=== PATIENT | male | born 1945 | race Two or more races ===

== ENCOUNTER 2023-07-19 21:53 | Inpatient (IN) | payer OTHER ==
[~2023-07-19] VITALS: Ht 165.1 cm; Wt 127.5 kg
[2023-07-19] MEDS ORDERED: CARDURA1 MG PO (22:09)
[2023-07-19] MEDS ORDERED: HUMALOG100 UNIT/2 SQ (22:10)
[2023-07-19] MEDS ORDERED: LASIX20 MG (22:10)
[2023-07-19] MEDS ORDERED: GLUMETZA500 MG (22:10)
[2023-07-19] MEDS ORDERED: METROPOLOL (22:10)
[2023-07-19] MEDS ORDERED: NEURONTIN300 MG PO (22:10)
--- NOTE | 2023-07-19 22:11 | NUR ---
PTE ALERTA Y ORIENTADO X3, LLEGA EN AMBULANCIA EN COMPANIA DE PARAMEDICOS. PTE REFIERE SE CODY EN [place]. AL MOMENTO PTE PRESENTA 170/110MMHG Y 94%. SE REALIZA EKG Y SE PRESENTA A . SE UBICA PTE EN AREA DE OBSERVACION Y SE CONECTA A MONITOR CARDIACO.
[2023-07-19] MEDS ORDERED: LABETALOL HCL 100 MG/20 ML ML IV ONE (22:30)
[2023-07-19] MEDS ORDERED: NITROGLYCERIN 0.2 MG/HR PATCH.TD24 TD ONE (22:45)
[2023-07-19] MEDS ORDERED: FUROsemide 20 MG/2 ML VIAL IV ONE (22:45)
[2023-07-19] MEDS ORDERED: IPRATROPIUM BROMIDE 0.5 MG/2.5 ML AMPUL.NEB IH SCH (22:45)
--- NOTE | 2023-07-19 23:21 | NUR ---
MASCULINO EVALUADO POR . SE EDUCA A PTE SOBRE TX MEDICO Y REFIERE ENTENDER. PTE CONECTADO A MONITOR CARDIACO Y OXIMETRIA DE PULSO. SE COLOCA CANULA A 3 LT/MIN. SE INSERTA SPEARS BAJO MEDIDAS ESTERILES, SE CORROBORA PATENTICIDAD Y SE COLOCA A GRAVEDAD. SE NOTIFICAN ABG'S Y TERAPIAS RESPIRATORIAS PENDIENTES. SE NOTIFICAN X-RAYS Y CT.
--- NOTE | 2023-07-19 23:55 | NUR ---
SE LE EXTRAEN MUESTRAS BAJO MEDIDAS ASEPTICAS,SE CANALIZA Y SE ADMINISTRAN MEDICAMENTOS NANCY ORDEN MEDICA.SE NOTIFICAN TERAPIAS RESP Y ABG A MANN.
[2023-07-19 23:56] LABS: HEMOGLOBIN 13.3 g/dL (13-16.00); MEAN CELL VOLUME 85.7 fL (80.0-100.00); MEAN CORPUSCULAR HEMOGLOBIN 29.2 pg (27.00-32.0); PLATELET COUNT 237 K/uL (150-450); RED BLOOD COUNT 4.55 M/uL (4.00-6.00); RED CELL DISTRIBUTION WIDTH 15.4 % (11.5-14.5)
[2023-07-20 00:26] LABS: PH,URINE 7.5 (5.0-8.0); URINE APPEARANCE Clear; URINE BILIRRUBIN Negative (NEGATIVE); URINE BLOOD Small; URINE COLOR Yellow; URINE GLUCOSE Negative (NEGATIVE); URINE LEUKOCYTE Negative; URINE NITRATE Negative; URINE PROTEIN 30 (NEGATIVE); URINE UROBILINOGEN 0.2 E.U./dl
--- NOTE | 2023-07-20 00:26 | NUR ---
PACIENTE ALERTA Y ORIENTAD X3, SE DAYANA BP MANUAL NANCY ORDEN MEDICA DEL DR. GONZALEZ. EL RESULTADO DE LA MISMA FUE DE 180/90.
[2023-07-20 00:30] LABS: URINE BACTERIA 7.5 uL (0.0-1933); URINE EPITHELIAL CELLS 2.6 uL (0.0-38.8); URINE WBC 15.6 uL (0.0-23.2)
[2023-07-20 00:39] LABS: INR 1.01; PARTIAL THROMBOPLASTIN TIME 29.3 SECONDS (22.0-34.0); PROTHROMBIN TIME 10.6 SECONDS (9.0-11.5)
[2023-07-20 00:40] LABS: CALCIUM 9.5 mg/dL (8.5-10.1); CREATININE SERUM 1.33 mg/dL (0.70-1.30); GFR 51.73; POTASSIUM 3.9 mEq/L (3.5-5.1)
[2023-07-20 01:12] LABS: ABG PH 7.406 (7.35-7.45); ABG pCO2 49.2 mmHg (35-45); BASE EXCESS 4.4 mmol/l; BICARBONATE 30.2 mmol/l (23-25); SaO2 97.7 %; Tco2 31.7 mmol/l
[2023-07-20] MEDS ORDERED: LABETALOL HCL 20MG/4ML SYRINGE IV STA (01:14)
[2023-07-20 01:15] LABS: allen test SATISFACTORY; o2 28 %; puncture site RADIAL RIGHT
[2023-07-20] MEDS ORDERED: CLOPIDOGREL BISULFATE 75 MG TABLET PO STA (01:44)
[2023-07-20] MEDS ORDERED: ASPIRIN 81 MG TAB.CHEW PO STA (01:45)
[2023-07-20] MEDS ORDERED: NITROGLYCERIN IN 5 % DEXTROSE 250 ML IV SCH (04:00)
--- NOTE | 2023-07-20 07:08 | NUR ---
SE RECIBE PACIENTE DE TURNO ANTERIOR ALERTA Y ORIENTADO X3; UBICADO EN SECCION K. CONECTADO A MONITOR CARDIACO Y OXIMETRIA DE PULSO. SE OBSERVA CON CANULA NASAL A 3LT/MIN; LA CUAL TOLERA PRESENTADO SPO2 100% CANALIZACIONES X2; LIBRES DE EDEMA O ERITEMA. RECIBIENDO DRIP DE TRIDIL @3ML/HR. SPEARS A GRAVEDAD CON EGRESO APROXIMADO DE 1200 ML COLOR AMARILLO GAIL. PACIENTE CONSULTADO DR. JAMES HOBBS. PENDIENTE MUESTRAS DE LABORATORIO.
--- NOTE | 2023-07-20 10:00 | NUR ---
SE RECIBE MASCULINO ALERTA Y ORIENTADO X3 AL AREA DE CUIDADO CRITICO. SE UBICA EN CAMA #3, SE CONECTA A MONITOR CARDIACO Y OXIMETRIA DE PULSO. VENOPUNCION #22 X2 PATENTES Y FELICIA DE EDEMA. SE OBSERVA EDEMA EN AMBOS BRAZOS, FAUSTO Y EXTREMIDADES INFERIORES. NO PRESENTA AREAS DE PRESION AL MOMENTO. SI SE OBSERVA PIEL LIGERAMENTE DESHIDRATADA. SPEARS PATENTE Y EN POSICION CON 100MLS APROX DE ORINA AMARILLO OBSCURO. CANULA NASAL A 3 LT/MIN. TRIDIL BAJANDOA A 3MLS/HR POR IV PUMP. SE REALIZA DAYANA DE S/V Y SE DOCUMENTA EN SISTEMA. PTE PENDIENTE A CONSULTA CON DR.HERNANDEZ HOBBS.
[2023-07-20] MEDS ORDERED: INSULIN LISPRO 1,000 UNIT/10 ML UNITS SUBCUTANEO PRN (11:00)
[2023-07-20] MEDS ORDERED: SODIUM CHLORIDE 0.45 % 1,000 ML IV SCH (11:00)
[2023-07-20] MEDS ORDERED: DEXTROSE 50 % IN WATER 0.5 G/ML DISP.SYRIN IV PRN (11:00)
[2023-07-20] MEDS ORDERED: NITROGLYCERIN IN 5 % DEXTROSE 50 MG/250 ML BOTTLE IV SCH (11:00)
[2023-07-20] MEDS ORDERED: ENOXAPARIN SODIUM 60 MG/0.6 ML SYRINGE SUBCUTANEO SCH (11:01)
[2023-07-20] MEDS ORDERED: ATORVASTATIN CALCIUM 40 MG TABLET PO SCH (11:01)
[2023-07-20 13:07] LABS: LDH 302 U/L (87-241)
[2023-07-20 13:18] LABS: PHOSPHOKINASE CREATININE 1227 U/L (39-308)
[2023-07-20] MEDS ORDERED: LEVALBUTEROL HCL 0.63 MG/3 ML SOLUTION IH SCH (16:31)
[2023-07-20] MEDS ORDERED: BUDESONIDE 0.5 MG/2 ML AMPUL.NEB IH SCH (17:00)
[2023-07-20] MEDS ORDERED: DOCUSATE SODIUM 100MG CAP PO SCH (21:00)
[2023-07-20] MEDS ORDERED: FAMOtidine 20 MG TABLET PO SCH (21:00)
[2023-07-21] MEDS ORDERED: OxyCODONE HCL/APAP UD (PERCOCET) PO ONE (03:30)
[2023-07-21 07:42] LABS: ALBUMIN 3.3 gm/dL (3.4-5.0); BILIRUBIN TOTAL 0.88 mg/dL (0.3-1.2); CALCIUM 8.6 mg/dL (8.5-10.1); CHOL HDL RATIO 4.9 (0-5.0); CREATININE SERUM 1.42 mg/dL (0.70-1.30); GFR 47.97; GLOBULINA 3.5 G/DL (2.4-3.5); POTASSIUM 3.97 mEq/L (3.5-5.1); TOTAL PROTEIN 6.8 gm/dL (6.4-8.2); TSH 3.05 uIU/mL (0.358-3.74)
[2023-07-21 07:48] LABS: INR 1.02; PARTIAL THROMBOPLASTIN TIME 30.3 SECONDS (22.0-34.0); PROTHROMBIN TIME 10.7 SECONDS (9.0-11.5)
[2023-07-21 08:42] LABS: URINE APPEARANCE Turbid; URINE BILIRRUBIN Small (NEGATIVE); URINE BLOOD Large; URINE COLOR Orange; URINE GLUCOSE Negative (NEGATIVE); URINE LEUKOCYTE Small; URINE NITRATE Negative
[2023-07-21 08:46] LABS: URINE BACTERIA 570.7 uL (0.0-1933); URINE EPITHELIAL CELLS 16.3 uL (0.0-38.8); URINE RBC 7340.9 uL (0.0-20.8); URINE WBC 365.5 uL (0.0-23.2)
[2023-07-21] MEDS ORDERED: NIFEDIPINE 30 MG TAB.SA.OSM PO SCH (09:00)
[2023-07-21] MEDS ORDERED: TAMSULOSIN HCL 0.4 MG CAP PO SCH ×2 (09:00)
[2023-07-21 09:41] LABS: URINE PROTEIN 100 (NEGATIVE)
[2023-07-21] MEDS ORDERED: LOSARTAN POTASSIUM 50 MG TABLET PO SCH (21:00)
[2023-07-22] MEDS ORDERED: ENALAPRILAT DIHYDRATE 1.25 MG/ML VIAL IV SCH (07:14)
[2023-07-22] MEDS ORDERED: ENOXAPARIN SODIUM 40 MG/0.4 ML SYRINGE SUBCUTANEO SCH (09:00)
[2023-07-22] MEDS ORDERED: ACETAMINOPHEN 500 MG GEL..CAP PO PRN (19:15)
[2023-07-23] MEDS ORDERED: MAGNESIUM HYDROXIDE 30 ML BLIST.PACK PO ONE (12:30)
[2023-07-23] MEDS ORDERED: NA PHOS,M-B/NA PHOS,DI-BA 1 BOTTLE ENEMA RECTAL ONE (12:30)
[2023-07-23] MEDS ORDERED: LACTULOSE 20 G/30 ML BLIST.PACK PO ONE ×2 (12:30)
[2023-07-23] MEDS ORDERED: MINERAL OIL 30 ML BLIST.PACK PO ONE (12:30)
[2023-07-23] MEDS ORDERED: BUDESONIDE 0.5 MG/2 ML AMPUL.NEB IH SCH (21:00)
[2023-07-24] MEDS ORDERED: Procardia Xl 30MG TA PO (07:31)
[2023-07-24] MEDS ORDERED: TAMS0.4C PO (07:31)
[2023-07-24] MEDS ORDERED: LIPITOR40 M1 PO (07:31)
[2023-07-24] MEDS ORDERED: COZAAR50 MG PO (07:31)
== END 2023-07-24 12:42 | disposition home or self-care (01) | DRG 281 ==
LOC: ER 21:53 → ICU-2 07-20 11:24 → ICU 07-20 11:24 → MEDI 07-22 13:42
PROVIDERS: General Practice; ADMIT Internal Medicine; ATTEND Internal Medicine
PROC: BR20ZZZ Computerized Tomography (CT Scan) of Cervical Spine (ICD-10-PCS; principal; 2023-07-19)
PROC: B020ZZZ Computerized Tomography (CT Scan) of Brain (ICD-10-PCS; 2023-07-19)
PROC: 4A12X4Z Monitoring of Cardiac Electrical Activity, External Approach (ICD-10-PCS; 2023-07-19)
PROC: B24BYZZ Ultrasonography of Heart with Aorta using Other Contrast (ICD-10-PCS; 2023-07-20)
DX: I21.4 Non-ST elevation (NSTEMI) myocardial infarction (principal); M62.82 Rhabdomyolysis; N17.9 Acute kidney failure, unspecified; I24.9 Acute ischemic heart disease, unspecified; R79.89 Other specified abnormal findings of blood chemistry; E11.9 Type 2 diabetes mellitus without complications; Z79.4 Long term (current) use of insulin; I50.9 Heart failure, unspecified